=== PATIENT | female | born 1935 | race Caucasian/White ===

== ENCOUNTER → 2016-12-31 | Outpatient (CLI) | payer MEDICARE, BC ==
[2016-03-24 11:39] VITALS: BP 172/69
[~2016-12-31] MED LIST: ACET325T9 PO; ALBU2.5V14 IH; ALBU8.5H8 INH; ASPI-482 PO; DOCU-109 PO; FLUT1DIS3 IH; FURO-68 PO; LEVO75TA PO; METO25TA4 PO; POTA20TA82 PO; PRED2.5T PO
== END | disposition home or self-care (01) ==
LOC: SURG 13:32
PROVIDERS: ATTEND Anesthesiology Pain Medicine
DX: M54.12 Radiculopathy, cervical region (principal); M47.812 Spondylosis without myelopathy or radiculopathy, cervical region; F17.210 Nicotine dependence, cigarettes, uncomplicated
CPT/HCPCS: 99204

== ENCOUNTER 2017-08-27 12:37 | Inpatient (IN) | payer MEDICARE, BC ==
[~2017-08-27] VITALS: Ht 162.6 cm; Wt 84.0 kg
[2017-08-27 12:39] VITALS: BP 109/72
[2017-08-27 13:00] VITALS: BP 112/70
[2017-08-27] MEDS ORDERED: VANCOMYCIN PER PHARMACY MC PRN (13:00)
[2017-08-27] MEDS ORDERED: PIP/TAZO PER PHARMACY MC PRN (13:00)
[2017-08-27] MEDS ORDERED: SOTA80TA48 PO (14:30)
[2017-08-27] MEDS ORDERED: GABA100C6 PO (14:30)
[2017-08-27] MEDS ORDERED: FLUT1DIS3 INH (14:39)
[2017-08-27] MEDS ORDERED: ALBU2.5V5 INH (14:39)
[2017-08-27] MEDS ORDERED: APAP/CODEINE PO (14:39)
[2017-08-27] MEDS ORDERED: VANCOMYCIN 2 GM in IV NORMAL SALINE 500ML 500 ML IV ONE (15:00)
[2017-08-27] MEDS: IV NORMAL SALINE 1,000ML 1,000 ML IV SCH (15:17)
[2017-08-27] MEDS ORDERED: ALBUTEROL SULFATE 2.5 MG/3 ML NEBU. INH PRN (15:30)
[2017-08-27 15:59] LABS: ALBUMIN 2.7 g/dL (3.4-5.0); ALBUMIN/GLOBULIN RATIO 0.8 (1.0-1.7); BASO % 1 % (0-3); CALCIUM 8.9 mg/dL (8.5-10.1); CREATININE 1.1 mg/dL (0.6-1.0); EOS # 0.4 x10^3/uL (0.0-0.7); EOS % 5 % (0-3); GFR 47.4; HEMATOCRIT 33.2 % (36.0-47.0); HEMOGLOBIN 11.1 g/dL (12.0-15.5); LYMPH % 28 % (24-48); MEAN CORPUSCULAR HEMOGLOBIN 32 pg (25-35); MEAN CORPUSCULAR HGB CONC 34 g/dL (31-37); MEAN CORPUSCULAR VOLUME 95 fL (79-100); MONO # 0.5 x10^3/uL (0.0-1.1); MONO % 6 % (0-9); NEUT # 4.4 x10^3uL (1.8-7.7); NEUT % 60 % (31-73); PLATELET COUNT 246 x10^3/uL (140-400); POTASSIUM 3.7 mmol/L (3.5-5.1); RED BLOOD COUNT 3.51 x10^6/uL (3.50-5.40); RED CELL DISTRIBUTION WIDTH 13.6 % (11.5-14.5); TOTAL BILIRUBIN 0.5 mg/dL (0.2-1.0); TOTAL PROTEIN 6.3 g/dL (6.4-8.2); WHITE BLOOD COUNT 7.3 x10^3/uL (4.0-11.0)
[2017-08-27] MEDS: IPRATRPIUM/ALBUTEROL 0.5/2.5MG 3 ML NEBU. NEB SCH ×2 (16:00→20:00)
[2017-08-27] MEDS: ALBUTEROL SULFATE 2.5 MG/3 ML NEBU. NEB SCH ×2 (16:27→20:54)
[2017-08-27] MEDS: ACETAMINOPHEN/CODEINE 300/30MG TABLET PO SCH ×2 (16:33→23:17)
[2017-08-27] MEDS ORDERED: IOHEXOL 300 MG/ML 75 ML VIAL. IV ONE (17:45)
[2017-08-27] MEDS: PIPERACILLIN/TAZOBACTAM 3.375 GM in IV NORMAL SALINE 50ML 50 ML IV SCH ×2 (18:00→23:18)
[2017-08-27] MEDS ORDERED: CONTRAST GIVEN MC PRN (18:00)
--- NOTE | 2017-08-27 18:37 | RAD ---
CTA Chest with contrast: Clinical History: Omni 300, 70ml IV. Elevated d-dimer. Hx colon and lung cancer w/colon surgery. Shortness of breath. Axial helical images of the chest were obtained after the administration of 70 cc of IV Omni 300 and timed appropriately for a pulmonary arterial study. Conventional axial reconstruction was performed in addition to coronal, sagittal and bilateral oblique MIP (maximum intensity projection). This study was ordered to detect possible pulmonary embolism. There are no filling defects to suggest pulmonary embolism. There is peripheral patchy opacities throughout the lungs bilaterally and consolidation in the right upper lung with volume loss. There is no mediastinal or hilar lymphadenopathy. There is a stent in the ascending thoracic aorta. Impression: 1. No evidence of pulmonary embolism. 2. Bilateral patchy opacities with consolidation in the right upper lobe. Findings suggest primary or metastatic lung cancer. Consolidation of the right upper lobe suggests postobstructive atelectasis. RS Compliance Statement: One or more of the following individualized dose reduction techniques were utilized for this examination: 1. Automated exposure control 2. Adjustment of the mA and/or kV according to patient size 3. Use of iterative reconstruction technique Electronically signed by: Chapo Bonilla III, MD (08/27/2017 6:34 PM) [id number]
[2017-08-27 19:03] VITALS: BP 103/64
[2017-08-27] MEDS: BUDESONIDE 0.5 MG/2 ML NEBU NEB SCH (20:00)
[2017-08-27] MEDS ORDERED: SALMETEROL INH SCH (21:00)
[2017-08-27] MEDS ORDERED: FLUTICASONE INH SCH (21:00)
[2017-08-27] MEDS ORDERED: APAP PO SCH (22:00)
[2017-08-27] MEDS ORDERED: CODEINE PO SCH (22:00)
[2017-08-27 23:23] VITALS: BP 140/73
[2017-08-28 00:23] LABS: BACTERIA,URINE FEW /HPF (0-FEW); BILIRUBIN,URINE NEG (NEG); CLARITY,URINE CLEAR; COLOR,URINE YELLOW; GLUCOSE,URINE NEG (NEG); NITRITE,URINE NEG (NEG); RBC,URINE RARE /HPF (0-2); SQUAMOUS EPITHELIAL CELL,UR FEW /LPF; UROBILINOGEN,URINE 1 mg/dL (0.2 mg/dL)
[2017-08-28] MEDS: ACETAMINOPHEN/CODEINE 300/30MG TABLET PO SCH ×2 (04:00→08:35)
[2017-08-28] MEDS: IV NORMAL SALINE 1,000ML 1,000 ML IV SCH (05:09)
[2017-08-28] MEDS: PIPERACILLIN/TAZOBACTAM 3.375 GM in IV NORMAL SALINE 50ML 50 ML IV SCH ×3 (05:20→18:23)
[2017-08-28 05:35] VITALS: BP 109/65
[2017-08-28] MEDS: ALBUTEROL SULFATE 2.5 MG/3 ML NEBU. NEB SCH ×4 (05:37→20:26)
[2017-08-28] MEDS: IPRATRPIUM/ALBUTEROL 0.5/2.5MG 3 ML NEBU. NEB SCH ×4 (05:39→20:27)
[2017-08-28] MEDS: BUDESONIDE 0.5 MG/2 ML NEBU NEB SCH ×3 (05:40→20:26)
[2017-08-28 05:46] LABS: BASO % 0 % (0-3); EOS # 0.2 x10^3/uL (0.0-0.7); EOS % 3 % (0-3); HEMATOCRIT 32.7 % (36.0-47.0); LYMPH % 16 % (24-48); MEAN CORPUSCULAR HEMOGLOBIN 32 pg (25-35); MEAN CORPUSCULAR HGB CONC 34 g/dL (31-37); MEAN CORPUSCULAR VOLUME 94 fL (79-100); MONO # 0.3 x10^3/uL (0.0-1.1); MONO % 5 % (0-9); NEUT # 4.7 x10^3uL (1.8-7.7); NEUT % 76 % (31-73); PLATELET COUNT 207 x10^3/uL (140-400); RED BLOOD COUNT 3.47 x10^6/uL (3.50-5.40); RED CELL DISTRIBUTION WIDTH 13.2 % (11.5-14.5); WHITE BLOOD COUNT 6.2 x10^3/uL (4.0-11.0)
[2017-08-28 05:48] LABS: CALCIUM 8.6 mg/dL (8.5-10.1); CREATININE 1.2 mg/dL (0.6-1.0); GFR 42.9; POTASSIUM 3.9 mmol/L (3.5-5.1)
[2017-08-28] MEDS ORDERED: ONDANSETRON PF 4 MG/2 ML VIAL. IV PRN (06:30)
[2017-08-28] MEDS: SOTALOL 80 MG TABLET. PO SCH (08:36)
[2017-08-28] MEDS ORDERED: DULoxetine HCL 20 MG CAPSULE.DR PO SCH ×2 (09:00→21:00)
[2017-08-28 10:38] VITALS: BP 107/61
--- NOTE | 2017-08-28 11:48 | PN ---
DATE: 08/28/2017 SUBJECTIVE: An 82-year-old female brought in what appeared to be possible pneumonia and right upper lobe infiltrative process. The patient's CT scan shows probable cancer. She will receive continued IV antibiotic therapy. Says she is feeling somewhat better with the IV antibiotics as well as her breathing treatments. The patient in any case will have culture on her urine. Discussed with the patient and she would like to be transferred to another facility for Pulmonology obviously since we do not have that here. PHYSICAL EXAMINATION: VITAL SIGNS: Blood pressure 110/60, respiratory rate 20, pulse 70, afebrile. She is on 4 liters at 95%. GENERAL: The patient is alert and oriented. LUNGS: Diminished throughout, poor movement of air, but clear. CARDIOVASCULAR: Regular sinus rhythm. ABDOMEN: Soft, nontender. EXTREMITIES: No clubbing, cyanosis, edema. NEUROLOGIC: Intact. IMPRESSION: Right upper lobe infiltrative process, possible pneumonia of unspecified etiology, probable possible lung cancer. The patient continues to be monitored. IV antibiotic therapy, aggressive pulmonary toilet and make arrangements for her to be transferred. NENA CASAS MD DR: MICHAEL/anshu JOB#: [id number] / [id number]
[2017-08-28 15:02] VITALS: BP 120/67
[2017-08-28] MEDS ORDERED: VANCOMYCIN 1.25 GM in IV NORMAL SALINE 250ML 250 ML IV SCH (16:00)
--- NOTE | 2017-08-28 16:32 | EKG ---
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
[2017-08-28 18:35] VITALS: BP 129/74
[2017-08-28] MEDS: ACETAMINOPHEN/CODEINE 300/30MG TABLET PO PRN (19:35)
[2017-08-28] MEDS ORDERED: levoFLOXacin 500 MG TABLET PO ONE (21:00)
[2017-08-29] MEDS: ACETAMINOPHEN/CODEINE 300/30MG TABLET PO PRN (05:19)
[2017-08-29 05:21] VITALS: BP 112/68
[2017-08-29] MEDS ORDERED: ALBUTEROL SULFATE 2.5 MG/3 ML NEBU. NEB SCH (08:00)
[2017-08-29] MEDS ORDERED: DULoxetine HCL 30 MG CAPSULE.DR PO SCH (09:00)
[2017-08-29 09:47] VITALS: BP 112/68
[2017-08-29] MEDS: SOTALOL 80 MG TABLET. PO SCH (09:47)
[2017-08-29] MEDS ORDERED: LEVO250T25 PO (09:48)
[2017-08-29] MEDS ORDERED: ACETAMINOPHEN PO (09:48)
[2017-08-29] MEDS ORDERED: CODEINE PO (09:48)
[2017-08-29] MEDS ORDERED: DULO30CA2 PO (09:48)
[2017-08-29] MEDS ORDERED: levoFLOXacin 250 MG TABLET PO SCH (21:00)
== END 2017-08-29 10:47 | disposition hospice, home (50) | DRG 193 ==
LOC: MERGE 12:37 → 1 SOUTH 12:37
PROVIDERS: ADMIT Family Medicine; ATTEND Family Medicine
DX: J18.9 Pneumonia, unspecified organism (principal); E41 Nutritional marasmus; C34.91 Malignant neoplasm of unspecified part of right bronchus or lung; E78.00 Pure hypercholesterolemia, unspecified; I25.10 Atherosclerotic heart disease of native coronary artery without angina pectoris; J45.909 Unspecified asthma, uncomplicated; G60.3 Idiopathic progressive neuropathy; M79.605 Pain in left leg; Z98.51 Tubal ligation status; Z98.49 Cataract extraction status, unspecified eye; Z79.82 Long term (current) use of aspirin; Z79.899 Other long term (current) drug therapy; Z68.31 Body mass index [BMI] 31.0-31.9, adult
CPT/HCPCS: 36415; 71275; 80048; 80053; 81001; 83605; 84443; 85025; 85379; 87040; 87086; 93005; 94640; J2405; J2543; J3370; J7040; J7050; J7613; J7620; J7626; Q9967; J7030